=== PATIENT | female | born 1995 | race Two or more races ===

== ENCOUNTER 2018-09-20 03:18 | Inpatient (IN) | payer OTHER ==
[~2018-09-20] VITALS: Ht 160 cm; Wt 56.7 kg
[2018-09-23] MEDS ORDERED: INTESTINEX680 M1 PO (16:25)
== END 2018-09-23 16:50 | disposition home or self-care (01) | DRG 694 ==
LOC: ER 03:18 → MEDJ 11:15 → SEC-K 11:15 → MEDJ 13:42
PROVIDERS: ADMIT Internal Medicine
PROC: BW21ZZZ Computerized Tomography (CT Scan) of Abdomen and Pelvis (ICD-10-PCS; principal; 2018-09-20)
DX: N20.0 Calculus of kidney (principal); N13.6 Pyonephrosis

== ENCOUNTER 2019-02-24 12:23 | Emergency (ER) | payer OTHER ==
[~2019-02-24] VITALS: Ht 160 cm; Wt 54.4 kg
[~2019-02-24 12:23] MED LIST: INTESTINEX680 M1 PO
[2019-02-24] MEDS ORDERED: PROBIOTIC1 EAC2 (12:29)
[2019-02-24] MEDS ORDERED: AVIANE-28 TABL1 EACH (12:30)
== END 2019-02-24 16:00 | disposition home or self-care (01) ==
LOC: ER 12:23
DX: N39.0 Urinary tract infection, site not specified (principal)